=== PATIENT | female | born 2000 | race Caucasian/White ===

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

== ENCOUNTER 2018-07-29 09:26 | Emergency (ER) | payer BC ==
[~2018-07-29] VITALS: Ht 157.5 cm; Wt 51.7 kg
[~2018-07-29 09:26] MED LIST: IBUP-1007 PO; ONDA4TAB10 SL
--- NOTE | 2018-07-29 10:21 | PHYS DOC ---
Past Medical History Past Medical History: Anxiety Past Surgical History: No Surgical History Alcohol Use: Occasionally Drug Use: Marijuana Adult General Chief Complaint Chief Complaint: RECTAL BLEED HPI HPI Patient is a 18 year old female who presents with rectal bleeding. This started early this morning at approximately 3 AM. Notes only blood with bowel movements. Notes that she had on her last episode black, tarry-looking stool. Patient reports that she had flulike illness approximately a month ago and since that time has been having some nausea and vomiting issues along with loose stools. She was seen at an urgent care several weeks ago and started on antibiotics for a urinary tract infection. She has completed the antibiotics but still has the decreased appetite along with the nausea vomiting and diarrhea. Patient's mother reports that she looks like she has lost weight. Patient is uncertain as to this. Trying to lose weight. Patient recently traveled to [place], as well as the [facility] to help with Hurricaine relief. He notes that she's been having diffuse, crampy abdominal pain for approximately the past month as well.[] Review of Systems Review of Systems Constitutional: Denies fever or chills [] Eyes: Denies change in visual acuity, redness, or eye pain [] HENT: Denies nasal congestion or sore throat [] Respiratory: Denies cough or shortness of breath [] Cardiovascular: No S pain or palpitations[] GI: See history of present illness[] : Denies dysuria or hematuria [] Musculoskeletal: Denies back pain or joint pain [] Integument: Denies rash or skin lesions [] Neurologic: Denies headache, focal weakness or sensory changes [] Endocrine: Denies polyuria or polydipsia [] All other systems were reviewed and found to be within normal limits, except as documented in this note. Current Medications Current Medications Current Medications Medications (Trade) Dose Ordered Sig/Jessa Start Time Stop Time Status Last Admin Dose Admin Diphenhydramine HCl (Benadryl) 25 mg 1X ONCE 07/29/18 11:45 07/29/18 11:46 DC 07/29/18 12:02 25 MG Hyoscyamine (Anaspaz) 0.125 mg ONCE ONCE 07/29/18 10:45 07/29/18 10:46 DC 07/29/18 10:33 0.125 MG Info (CONTRAST GIVEN -- Rx MONITORING) 1 each PRN DAILY PRN 1/29/19 11:00 07/31/18 10:59 Iohexol (Omnipaque 240 Mg/ml) 50 ml 1X ONCE 07/29/18 11:00 07/29/18 11:01 DC 07/29/18 11:00 50 ML Iohexol (Omnipaque 300 Mg/ml) 75 ml 1X ONCE 07/29/18 11:00 07/29/18 11:01 DC 07/29/18 11:00 75 ML Prochlorperazine Edisylate (Compazine) 5 mg 1X ONCE 07/29/18 10:45 07/29/18 10:46 DC 07/29/18 10:34 5 MG Allergies Allergies Allergies Coded Allergies Type Severity Reaction Last Updated Verified ondansetron Adverse Reaction Intermediate Nausea 07/29/18 Yes Physical Exam Physical Exam Constitutional: Well developed, well nourished, no acute distress, non-toxic appearance. [] HENT: Normocephalic, atraumatic, bilateral external ears normal, oropharynx moist, no oral exudates, nose normal. [] Eyes: PERRLA, EOMI, conjunctiva normal, no discharge. [] Neck: Normal range of motion, no tenderness, supple, no stridor. [] Cardiovascular:Heart rate regular rhythm, no murmur [] Lungs & Thorax: Bilateral breath sounds clear to auscultation [] Abdomen: Bowel sounds normal, soft, no tenderness, no masses, no pulsatile masses. Rectal exam performed with ent surgeon: No external lesions or hemorrhoids noted. Normal tone, no gross bleeding. Scant amount of brown stool [] Skin: Warm, dry, no erythema, no rash. [] Back: No tenderness, no CVA tenderness. [] Extremities: No tenderness, no cyanosis, no clubbing, ROM intact, no edema. [] Neurologic: Alert and oriented X 3, normal motor function, normal sensory function, no focal deficits noted. [] Psychologic: Affect normal, judgement normal, mood normal. [] Current Patient Data Vital Signs Vital Signs Date Time Temp Pulse Resp B/P (MAP) Pulse Ox O2 Delivery O2 Flow Rate FiO2 07/29/18 09:40 98.7 70 20 119/66 (83) 98 Room Air 98.7 Lab Values Laboratory Tests Test 07/29/18 10:00 07/29/18 10:09 07/29/18 10:13 07/29/18 10:25 Urine Collection Type Void Urine Color [place] Urine Clarity Cloudy Urine pH 5.5 Urine Specific [place] >=1.030 Urine Protein 30 mg/dL (NEG-TRACE) Urine Glucose (UA) Negative mg/dL (NEG) Urine Ketones (Stick) 40 mg/dL (NEG) Urine Blood Negative (NEG) Urine Nitrite Negative (NEG) Urine Bilirubin Small (NEG) Urine Urobilinogen Dipstick 0.2 mg/dL (0.2 mg/dL) Urine Leukocyte Esterase Trace (NEG) Urine RBC 1-2 /HPF (0-2) Urine WBC 1-4 /HPF (0-4) Urine Squamous Epithelial Cells Mod /LPF Urine Bacteria Few /HPF (0-FEW) Urine Mucus Mod /LPF Stool Occult Blood Negative (NEG) POC Urine HCG, Qualitative Hcg negative (Negative) White Blood Count 11.1 x10^3/uL (4.0-11.0) H Red Blood Count 4.60 x10^6/uL (3.50-5.40) Hemoglobin 13.9 g/dL (12.0-15.5) Hematocrit 42.5 % (36.0-47.0) Mean Corpuscular Volume 92 fL (79-100) Mean Corpuscular Hemoglobin 30 pg (25-35) Mean Corpuscular Hemoglobin Concent 33 g/dL (31-37) Red Cell Distribution Width 13.7 % (11.5-14.5) Platelet Count 185 x10^3/uL (140-400) Neutrophils (%) (Auto) 84 % (31-73) H Lymphocytes (%) (Auto) 10 % (24-48) L Monocytes (%) (Auto) 6 % (0-9) Eosinophils (%) (Auto) 0 % (0-3) Basophils (%) (Auto) 0 % (0-3) Neutrophils # (Auto) 9.3 x10^3uL (1.8-7.7) H Lymphocytes # (Auto) 1.0 x10^3/uL (1.0-4.8) Monocytes # (Auto) 0.6 x10^3/uL (0.0-1.1) Eosinophils # (Auto) 0.0 x10^3/uL (0.0-0.7) Basophils # (Auto) 0.0 x10^3/uL (0.0-0.2) Prothrombin Time 13.6 SEC (11.7-14.0) Prothrombin Time INR 1.1 (0.8-1.1) Sodium Level 143 mmol/L (136-145) Potassium Level 3.4 mmol/L (3.5-5.1) L Chloride Level 106 mmol/L (98-107) Carbon Dioxide Level 24 mmol/L (21-32) Anion Gap 13 (6-14) Blood Urea Nitrogen 11 mg/dL (7-20) Creatinine 0.6 mg/dL (0.6-1.0) Estimated GFR (Cockcroft-Gault) 127.5 BUN/Creatinine Ratio 18 (6-20) Glucose Level 83 mg/dL (70-99) Calcium Level 9.2 mg/dL (8.5-10.1) Total Bilirubin 0.5 mg/dL (0.2-1.0) Aspartate Amino Transferase (AST) 14 U/L (15-37) L Alanine Aminotransferase (ALT) 15 U/L (14-59) Alkaline Phosphatase 61 U/L (46-116) Total Protein 7.4 g/dL (6.4-8.2) Albumin 4.2 g/dL (3.4-5.0) Albumin/Globulin Ratio 1.3 (1.0-1.7) Lipase 84 U/L (73-393) Laboratory Tests 07/29/18 10:25 Laboratory Tests 07/29/18 10:25 EKG EKG [] Radiology/Procedures Radiology/Procedures CT ABD PELV W/ORAL IV CONTRAST Clinical Indication: WEIGHT LOSS ABOUT 10 LBS AND RECTAL BLEEDING TODAY, DIARRHEA X 1 WEEK. Comparison: CT abdomen and pelvis with contrast September 25, 2016. Technique: Helical CT imaging of the abdomen and pelvis is performed after 75 cc of Omnipaque 300 IV contrast. Oral contrast also given. Findings: The lung bases are clear. Cardiac size normal. Liver, gallbladder, spleen, pancreas, adrenal glands, and abdominal aorta are normal. Kidneys enhance symmetrically. No hydronephrosis. Mild bilateral pelviectasis, less than on prior study. Stomach unremarkable. No dilated small bowel. The appendix is normal. There is mild wall thickening of the transverse colon beginning in the midportion with wall thickening of the descending colon. There is no surrounding induration. Sigmoid colon is not well distended. No abdominal adenopathy or free fluid. The urinary bladder is normal. Ovaries are symmetric in size. There is a 1.7 cm peripherally enhancing irregular shaped left ovary functional cyst. Uterus unremarkable. There are prominent periuterine veins. There are prominent enhancing gonadal veins. Mild pelvic free fluid. Bones unremarkable. IMPRESSION: 1. Mild wall thickening of the distal half of the transverse colon in the descending colon suggestive of mild nonspecific colitis, probably infectious or inflammatory bowel disease. 2. There is a small peripherally enhancing left ovary functional cyst. Mild pelvic free fluid. Findings are probably physiologic.[] Course & Med Decision Making Course & Med Decision Making Pertinent Labs and Imaging studies reviewed. (See chart for details) Medical decision making: There is no evidence of obstruction, perforation, nor significant bleeding. Her Hemoccult was negative. ED course: Patient arrived, was placed in bed, tolerated exam well. Patient did get some akathisia with the antiemetics so Benadryl was administered.[] Dragon Disclaimer Dragon Disclaimer This electronic medical record was generated, in whole or in part, using a voice recognition dictation system. Departure Departure Impression: Primary Impression: Abdominal pain Additional Impressions: Vomiting and diarrhea Colitis Disposition: HOME, SELF-CARE Condition: GOOD Referrals: NO PCP (PCP) Patient Instructions: Abdominal Pain (Nonspecific), Colitis, Diet for Diarrhea , Adult, Nausea and Vomiting Additional Instructions: Drink plenty of fluids, frequent small sips. No fatty foods, no milk, and no pepper for the next 48 hours. For the next 48 hours eat a diet rich in carbohydrates with foods such as bananas, rice, applesauce, and toast. Add yogurt and Kefir to your diet to help recolonize the good bacteria in your gut after the antibiotic therapy you've just recently been on. Follow-up with your regular doctor in 2 days. If you do not have a regular doctor, list of local low -cost clinics will be provided for you. Return to the ER if worsening discomfort , unable to tolerate liquids, or any other concerns. Scripts Prednisone (PREDNISONE) 50 Mg Tablet 50 MG PO DAILY for 7 Days, #7 TAB Prov: EMMA WILKES DO 07/29/18 Hyoscyamine Sulfate (LEVSIN) 0.125 Mg Tablet 0.125 MG PO QID, #30 TAB Prov: EMMA WILKES DO 07/29/18 Metoclopramide Hcl (REGLAN) 10 Mg Tablet 10 MG PO QIDACHS, #30 TAB 0 Refills Prov: EMMA WILKES DO 07/29/18 Problem Qualifiers Primary Impression: Abdominal pain Abdominal location: generalized Qualified Codes: R10.84 - Generalized abdominal pain EMMA WILKES DO Jul 29, 2018 10:20
[2018-07-29 10:27] LABS: BILIRUBIN,URINE SMALL (NEG); CLARITY,URINE CLOUDY; COLOR,URINE AMBER; PH,URINE 5.5
[2018-07-29 10:28] LABS: NITRITE,URINE NEGATIVE (NEG); PROTEIN,URINE 30 mg/dL (NEG-TRACE); UROBILINOGEN,URINE 0.2 mg/dL (0.2 mg/dL)
[2018-07-29 10:36] LABS: BASO % 0 % (0-3); EOS % 0 % (0-3); HEMATOCRIT 42.5 % (36.0-47.0); HEMOGLOBIN 13.9 g/dL (12.0-15.5); LYMPH % 10 % (24-48); MEAN CORPUSCULAR HEMOGLOBIN 30 pg (25-35); MEAN CORPUSCULAR HGB CONC 33 g/dL (31-37); MEAN CORPUSCULAR VOLUME 92 fL (79-100); MONO # 0.6 x10^3/uL (0.0-1.1); MONO % 6 % (0-9); NEUT # 9.3 x10^3uL (1.8-7.7); NEUT % 84 % (31-73); PLATELET COUNT 185 x10^3/uL (140-400); RED CELL DISTRIBUTION WIDTH 13.7 % (11.5-14.5); WHITE BLOOD COUNT 11.1 x10^3/uL (4.0-11.0)
[2018-07-29 10:36] LABS: FECAL OB PT NEGATIVE (NEG)
[2018-07-29 10:38] LABS: BACTERIA,URINE FEW /HPF (0-FEW); SQUAMOUS EPITHELIAL CELL,UR MOD /LPF
[2018-07-29] MEDS ORDERED: PROCHLORPERAZINE 10 MG/2 ML VIAL. IV ONE (10:45)
[2018-07-29] MEDS ORDERED: HYOSCYAMINE 0.125 MG TAB.RAPDIS PO ONE (10:45)
[2018-07-29 10:47] LABS: CALCIUM 9.2 mg/dL (8.5-10.1); CREATININE 0.6 mg/dL (0.6-1.0); GFR 127.5; POTASSIUM 3.4 mmol/L (3.5-5.1)
[2018-07-29 10:48] LABS: PROTHROMBIN TIME PATIENT 13.6 SEC (11.7-14.0)
[2018-07-29 10:52] LABS: ALBUMIN 4.2 g/dL (3.4-5.0); ALBUMIN/GLOBULIN RATIO 1.3 (1.0-1.7); TOTAL BILIRUBIN 0.5 mg/dL (0.2-1.0); TOTAL PROTEIN 7.4 g/dL (6.4-8.2)
[2018-07-29] MEDS ORDERED: CONTRAST GIVEN. MC PRN (11:00)
[2018-07-29] MEDS ORDERED: IOHEXOL 300 MG/ML 100ML VIAL. IV ONE (11:00)
[2018-07-29] MEDS ORDERED: IOHEXOL 240 MG/ML 50ML VIAL. PO ONE (11:00)
[2018-07-29] MEDS ORDERED: diphenhydrAMINE 50 MG/ML VIAL IVP ONE (11:45)
--- NOTE | 2018-07-29 12:01 | RAD ---
PQRS Compliance Statement: One or more of the following individualized dose reduction techniques were utilized for this examination: 1. Automated exposure control 2. Adjustment of the mA and/or kV according to patient size 3. Use of iterative reconstruction technique CT ABD PELV W/ORAL IV CONTRAST Clinical Indication: WEIGHT LOSS ABOUT 10 LBS AND RECTAL BLEEDING TODAY, DIARRHEA X 1 WEEK. Comparison: CT abdomen and pelvis with contrast September 25, 2016. Technique: Helical CT imaging of the abdomen and pelvis is performed after 75 cc of Omnipaque 300 IV contrast. Oral contrast also given. Findings: The lung bases are clear. Cardiac size normal. Liver, gallbladder, spleen, pancreas, adrenal glands, and abdominal aorta are normal. Kidneys enhance symmetrically. No hydronephrosis. Mild bilateral pelviectasis, less than on prior study. Stomach unremarkable. No dilated small bowel. The appendix is normal. There is mild wall thickening of the transverse colon beginning in the midportion with wall thickening of the descending colon. There is no surrounding induration. Sigmoid colon is not well distended. No abdominal adenopathy or free fluid. The urinary bladder is normal. Ovaries are symmetric in size. There is a 1.7 cm peripherally enhancing irregular shaped left ovary functional cyst. Uterus unremarkable. There are prominent periuterine veins. There are prominent enhancing gonadal veins. Mild pelvic free fluid. Bones unremarkable. IMPRESSION: 1. Mild wall thickening of the distal half of the transverse colon in the descending colon suggestive of mild nonspecific colitis, probably infectious or inflammatory bowel disease. 2. There is a small peripherally enhancing left ovary functional cyst. Mild pelvic free fluid. Findings are probably physiologic. Electronically signed by: Clovis Desai MD (07/29/2018 11:56 AM) [id number]
[2018-07-29] MEDS ORDERED: HYOS0.1264 PO (12:50)
[2018-07-29] MEDS ORDERED: METO10TA81 PO (12:50)
[2018-07-29] MEDS ORDERED: PRED50TA PO (12:50)
[2018-07-29 13:28] VITALS: BP 123/68
== END 2018-07-29 13:30 | disposition home or self-care (01) ==
LOC: ER 09:26
DX: K52.9 Noninfective gastroenteritis and colitis, unspecified (principal); N83.202 Unspecified ovarian cyst, left side; R10.84 Generalized abdominal pain; F41.9 Anxiety disorder, unspecified; Z88.8 Allergy status to other drugs, medicaments and biological substances
CPT/HCPCS: 36415; 74177; 80053; 81001; 81025; 82274; 83690; 85025; 85610; 87045; 87086; 96374; 96375; 99284; J0780; J1200; Q9966; Q9967